=== PATIENT | male | born 1980 | race Asian ===

== ENCOUNTER 2021-03-29 13:52 | Emergency (ER) | payer MEDICAID ==
[~2021-03-29] VITALS: Ht 175.3 cm; Wt 74.8 kg
[2021-03-29 14:18] VITALS: BP_SYST 149
--- NOTE | 2021-03-29 14:21 | NUR ---
Patient triaged and placed in waiting room. VSS and patient appears in no acute distress at this time. Accompanied by SELF, awaiting available bed, and MD notified of need for MSE.
--- NOTE | 2021-03-29 15:08 | NUR ---
PT COMES TO ER AFTER SUSTAINING AN INJURY TO RIGHT 4TH FINGER AFTER ACCIDENTALLY HAVING A BOX OF TILE -WEIGHING 80 LBS FALL ON HIS RT HAND. LAC TO RT 4TH FINGER, BLEEDING CONTROLLED. UNKNOWN LAST TETANUS SHOT. PAIN 10 AT THIS TIME.
--- NOTE | 2021-03-29 15:13 | NUR ---
DR OLSEN IN ROOM FOR EXAM
[2021-03-29] MEDS ORDERED: LIDOCAINE 1% 10 MG/ML, 20 ML MDV INJ ONE (15:30)
[2021-03-29] MEDS ORDERED: DIPH-TET-PERTUS Vaccine 0.5 ML VIAL (ADACEL) I.M. ONE (15:30)
[2021-03-29] MEDS ORDERED: BACITRACIN 1 GM OINT TP ONE (15:30)
--- NOTE | 2021-03-29 16:36 | NUR ---
DR OLSEN IN ROOM FOR LAC REPAIR.
[2021-03-29] MEDS ORDERED: IBUPROFEN 800 MG TABLET PO ONE (17:30)
[2021-03-29] MEDS ORDERED: HYDROcodone/ACETAMIN 10-325 MG TAB PO ONE (17:30)
--- NOTE | 2021-03-29 17:36 | NUR ---
Patient given written and verbal discharge instructions and verbalizes understanding. ER MD discussed with patient the results and treatment provided. Patient in stable condition. ID arm band removed. Patient educated on pain management and to follow up with PMD. Pain Scale . Opportunity for questions provided and answered. Medication side effect fact sheet provided.
[2021-03-29 17:37] VITALS: BP_SYST 137
== END 2021-03-29 17:37 | disposition home or self-care (01) ==
LOC: SED 13:52
DX: S61.214A Laceration without foreign body of right ring finger without damage to nail, initial encounter (principal); W23.0XXA Caught, crushed, jammed, or pinched between moving objects, initial encounter; Y93.89 Activity, other specified; Y92.89 Other specified places as the place of occurrence of the external cause; Y99.8 Other external cause status
CPT/HCPCS: 12002; 73140; 90471; 90715; 99283; J2001